=== PATIENT | female | born 1960 | race Caucasian/White ===

== ENCOUNTER 2020-08-07 06:59 | Observation (INO) ==
[2020-08-07 07:28] LABS: Bilirubin,Urine Negative (Negative); Blood,Urine Small (Negative); Clarity,Urine Clear (Clear); Color,Urine Light-Yellow (Yellow); Glucose,Urine (UA) Normal (Normal); Ketones,Urine 20 mg/dL (Negative); Leukocyte Esterase,Urine Negative (Negative); Mucus,Urine Few per lpf (None-Few); Nitrite,Urine Negative (Negative); PH,Urine 5.5 pH Units (5.0-8.0); Protein,Urine Negative (Neg-Trace); RBC,Urine 0-3 per hpf (0-3); Specific Gravity,Urine 1.025 (1.010-1.025); Squamous Epithelial Cell,Urine Few per hpf (None-Few); Urobilinogen,Urine Normal (Normal); WBC,Urine 0-3 per hpf (0-3)
[2020-08-07] MEDS ORDERED: Ondansetron 4 MG/2 ML VIAL IVP ONE (07:28)
[2020-08-07] MEDS ORDERED: Morphine Sulfate 2 MG/ML SYRINGE IVP ONE (07:28)
[2020-08-07] MEDS ORDERED: 0.9 % Sodium Chloride 1,000 ML IVC ONE (07:28)
[2020-08-07 07:48] LABS: Basophils % 0.5 %; Eosinophils % 0.6 %; Hemoglobin 13.8 g/dL (11.5-15.4); Immature Granulocytes % 0.3 % (0-4); Lymphocytes # 0.8 K/mcL (0.6-4.6); Lymphocytes % 13.4 %; Mean Corpuscular HGB Conc 33.7 g/dL (31.6-35.5); Mean Corpuscular Hemoglobin 32.9 pg (28.0-33.3); Mean Corpuscular Volume 97.9 fL (83.0-100.0); Mean Platelet Volume 9.5 fL (9.4-12.4); Monocytes # 0.6 K/mcL (0.0-1.3); Monocytes % 9.9 %; Neutrophils # 4.7 K/mcL (1.6-8.9); Platelet Count 166 K/mcL (140-400); Red Blood Count 4.19 M/mcL (3.82-4.97); Red Cell Distribution Width 11.9 % (11.5-14.5); Segmented Neutrophils % 75.3 %; White Blood Count 6.3 K/mcL (4.3-11.1)
[2020-08-07 08:07] LABS: Albumin 4.2 g/dL (3.5-5.7); Albumin/Globulin Ratio 1.7 (1.1-2.2); Bilirubin,Direct 0.1 mg/dL (0.0-0.2); Bilirubin,Indirect 0.7 mg/dL (0.0-1.0); Bilirubin,Total 0.8 mg/dL (0.3-1.0); Calcium 8.9 mg/dL (8.6-10.3); Globulin 2.5 g/dL (2.4-3.5); Potassium 4.1 mEq/L (3.5-5.1); Total Protein 6.7 g/dL (6.4-8.9)
[2020-08-07] MEDS ORDERED: *HR* HYDROmorphone (PF) 1 MG/ML SYRINGE IVP STA (09:19)
[2020-08-07] MEDS ORDERED: Naloxone 0.4 MG/ML INJ IVP PRN ×2 (10:07→19:39)
[2020-08-07] MEDS ORDERED: *HR* HYDROmorphone (PF) 1 MG/ML SYRINGE IVP PRN ×2 (10:17→19:39)
[2020-08-07] MEDS ORDERED: Ondansetron 4 MG/2 ML VIAL IVP PRN ×3 (15:22→19:39)
[2020-08-07] MEDS ORDERED: *HR* OxyCODONE Immed Rel 5 MG TABLET PO PRN (17:11)
[2020-08-07] MEDS ORDERED: *HR* FentaNYL (PF) 100 MCG/2 ML VIAL IVP PRN (17:11)
[2020-08-07] MEDS ORDERED: *HR* Metoprolol 5 MG/5 ML VIAL IVP PRN (17:11)
[2020-08-07] MEDS ORDERED: Isovue-300 50ML VIAL ONE (17:52)
[2020-08-07] MEDS ORDERED: *HR* Propofol 200 MG/20 ML VIAL IVP ONE (18:00)
[2020-08-07] MEDS ORDERED: Ondansetron 4 MG/2 ML VIAL ONE (18:01)
[2020-08-07] MEDS ORDERED: *HR* FentaNYL (PF) 100 MCG/2 ML VIAL ONE (18:01)
[2020-08-07] MEDS ORDERED: Dexamethasone 4 MG/ML VIAL ONE (18:01)
[2020-08-07] MEDS ORDERED: Lidocaine -MPF 2% 2 ML VIAL ONE (18:01)
[2020-08-07] MEDS ORDERED: *HR* Midazolam HCl 2 MG/2 ML VIAL ONE (18:01)
[2020-08-07] MEDS ORDERED: *HR* PHENYLEPHRINE 1,000 MCG/10 ML SYRINGE IVP ONE (18:28)
[2020-08-07] MEDS ORDERED: Ketorolac 30 MG/ML VIAL ONE (18:43)
[2020-08-07] MEDS ORDERED: *HR* HYDROcodone/Acet 10/325 mg TABLET PO PRN (19:39)
[2020-08-07] MEDS: carvediloL 25 MG TABLET PO SCH (20:14)
[2020-08-08 02:19] LABS: Basophils % 0.2 %; Hematocrit 36.1 % (35.3-44.9); Immature Granulocytes % 0.4 % (0-4); Lymphocytes # 0.3 K/mcL (0.6-4.6); Lymphocytes % 5.1 %; Mean Corpuscular HGB Conc 33.2 g/dL (31.6-35.5); Mean Corpuscular Hemoglobin 33.1 pg (28.0-33.3); Mean Corpuscular Volume 99.4 fL (83.0-100.0); Mean Platelet Volume 10.2 fL (9.4-12.4); Monocytes # 0.3 K/mcL (0.0-1.3); Monocytes % 5.1 %; Platelet Count 141 K/mcL (140-400); Red Blood Count 3.63 M/mcL (3.82-4.97); Segmented Neutrophils % 89.2 %; White Blood Count 5.5 K/mcL (4.3-11.1)
[2020-08-08 02:36] LABS: Calcium 8.4 mg/dL (8.6-10.3); Potassium 4.1 mEq/L (3.5-5.1)
[2020-08-08] MEDS: carvediloL 25 MG TABLET PO SCH (08:38)
[2020-08-08] MEDS ORDERED: EPA PO SCH (09:00)
[2020-08-08] MEDS ORDERED: FISH OIL PO SCH (09:00)
[2020-08-08] MEDS ORDERED: Multivit/Ca/Min/Fe/FA 1 TAB TABLET PO SCH ×2 (09:00)
[2020-08-08] MEDS ORDERED: Patient Taking Own Medication 1 EACH PO SCH (09:00)
[2020-08-08] MEDS ORDERED: OMEGA PO SCH (09:00)
[2020-08-08] MEDS ORDERED: DHA PO SCH (09:00)
[2020-08-08] MEDS ORDERED: lisinopriL 20 MG TABLET PO SCH (09:00)
[2020-08-08] MEDS ORDERED: Aspirin Enteric Coated 81 MG Tablet PO SCH ×2 (09:00)
[2020-08-08 15:05] VITALS: BP 132/82
== END 2020-08-08 16:30 | disposition home or self-care (01) ==
LOC: EMEROOARM 06:59 → 3ANU 06:59
PROVIDERS: ADMIT Family Medicine; ATTEND Family Medicine